=== PATIENT | female | born 1985 | race Caucasian/White ===

== ENCOUNTER 2018-02-02 13:58 | Outpatient (REF) | payer BC, SELFPAY ==
[2018-02-02 16:06] LABS: Iron 127 ug/dL (50-175); Total Iron Binding Capacity 329 ug/dL (250-450); Transferrin Sat 39 % (15-50)
[2018-02-02 16:19] LABS: Ferritin 52 ng/mL (8-388); TSH 0.51 uIU/mL (0.358-3.74)
== END 2018-02-02 14:18 ==
LOC: NCHCN 13:58
PROVIDERS: PCP Nurse Practitioner Family; Visit Provider Nurse Practitioner Family
DX: L65.9 Nonscarring hair loss, unspecified (principal)
CPT/HCPCS: 82728; 83540; 83550; 84443

== ENCOUNTER 2018-02-17 10:24 | Outpatient (REF) | payer BC, SELFPAY ==
--- NOTE | 2018-02-17 09:00 | PAPFT_PTH ---
PAT[facility]: [id number] AGE/SX: 32/F ROOM: RE02/17/[address]: Sergio Lopez : 1985 BED: DIS: 02/17/2018 SPEC #: [id number] RECD: 02/18/18 12:52 STATUS: RAQUEL REQ #: [id number] JULES: 02/17/18 09:[address]: Sergio Lopez DEPT: [facility] Cytology RECD BY: Ivelisse Vaca ENTERED: 02/18/18 12:52 SP TYPE: PAPFT OTHR DR: Faye Narayanan Tissues: 1 - CX/ENDOCX FOR PAP SMEARS Procedures: PAP THIN PREP/[facility] Screening HPV DNA PROBE Comments: [id number] (CHLAMYDIA/GC)
[2018-02-19 13:52] LABS: Chlamydia Result Negative; GC Result Negative; Specimen Description SEE COMMENTS
== END 2018-02-17 10:44 ==
LOC: NCHCN 10:24
PROVIDERS: PCP Nurse Practitioner Family; Visit Provider Family Medicine
DX: Z11.3 Encounter for screening for infections with a predominantly sexual mode of transmission (principal); Z12.4 Encounter for screening for malignant neoplasm of cervix; Z11.51 Encounter for screening for human papillomavirus (HPV); Z00.00 Encounter for general adult medical examination without abnormal findings
CPT/HCPCS: 87491; 87591; 88142; 87624

== ENCOUNTER 2019-02-07 11:39 | Outpatient (CLI) | payer OTHER, SELFPAY ==
--- NOTE | 2019-02-07 16:01 | DI.RAD_ITS ---
SYMPTOM/DIAGNOSIS: LEFT HAND PAIN M79.642 LEFT HAND: 02/07 Three views were obtained. No fracture is seen.
== END 2019-02-07 11:59 ==
PROVIDERS: PCP Family Medicine; Visit Provider Family Medicine
DX: M79.642 Pain in left hand (principal)
CPT/HCPCS: 73130

== ENCOUNTER 2019-09-13 23:18 | Outpatient (REF) | payer MEDICAID, SELFPAY ==
[2019-09-14 15:49] LABS: COVID-19 RT-PCR Result Negative (Negative)
== END 2019-09-13 23:38 ==
LOC: NCHCN 23:18
PROVIDERS: PCP Family Medicine; Visit Provider Physician Assistant
DX: J06.9 Acute upper respiratory infection, unspecified (principal)
CPT/HCPCS: U0003

== ENCOUNTER 2020-12-26 13:29 | Outpatient (REF) | payer MEDICAID, SELFPAY ==
[2020-12-26 14:59] LABS: Abs Immature Grans 0.02 10^3/uL (0.0-0.06); Absolute Basophil Count 0.06 10^3/uL (0.0-0.2); Absolute Eosinophil Count 0.25 10^3/uL (0.0-0.7); Absolute Lymphocyte Count 2.41 10^3/uL (1.2-3.4); Absolute Monocyte Count 0.61 10^3/uL (0.1-0.8); Absolute Neutrophil Count 5.99 10^3/uL (1.2-6.7); Basophils % 0.6; Eosinophils % 2.7; HCT 45.3 % (36.0-46.0); HGB 14.7 g/dL (11.2-15.7); Immature Grans % 0.2; Lymphocytes % 25.8; MCH 30.1 pg (27.0-33.0); MCHC 32.5 % (32.0-36.0); MCV 92.6 fL (80-95); MPV 10.9 fL (8.0-11.0); Monocytes % 6.5; Neutrophils % 64.2; Nucleated RBC 0 %; Platelet Count 320 10^3/uL (130-400); RBC 4.89 10^6/uL (3.93-5.22); RDW 12.3 % (11.7-14.6); RDW-SD 42.2 fL; WBC 9.34 10^3/uL (4.4-10.8)
[2020-12-26 15:43] LABS: Hemoglobin A1C 5.4 % (<5.7)
[2020-12-26 15:44] LABS: ALT 27 U/L (14-59); AST 15 U/L (15-37); Albumin 3.9 g/dL (3.4-5.0); Alkaline Phosphatase 65 U/L (46-116); Amylase 37 U/L (25-115); Anion Gap 7.3 mmol/L (3-11); BUN 13 mg/dL (7-18); Bilirubin, Total 0.3 mg/dL (0.2-1.0); CO2 28.7 mmol/L (21.0-32.0); CREATININE 0.9 mg/dL (0.55-1.02); Calcium 8.9 mg/dL (8.5-10.1); Chloride 104 mmol/L (98-107); Glucose 97 mg/dL (74-106); Lipase 89 U/L (73-393); Potassium 5.2 mmol/L (3.5-5.1); Sodium 140 mmol/L (136-145); TSH (W/Ref FT4) 0.71 uIU/mL (0.36-3.74); Total Protein 6.9 g/dL (6.4-8.2)
== END 2020-12-26 13:30 | disposition home or self-care (01) ==
LOC: LBN 13:29
PROVIDERS: PCP Family Medicine; Visit Provider Nurse Practitioner Family
DX: R10.11 Right upper quadrant pain (principal); R63.5 Abnormal weight gain; R35.8 Other polyuria
CPT/HCPCS: 80053; 83690; 82150; 83036; 84443; 85025; 87086

== ENCOUNTER 2021-01-23 15:12 | Outpatient (REF) | payer MEDICAID, SELFPAY ==
[2021-01-24 11:41] LABS: Campylobacter PCR Negative (Negative); Salmonella PCR Negative (Negative); Shiga Toxin PCR Negative (Negative); Shigella/Enteroinvasive Ecoli Negative (Negative)
== END 2021-01-23 15:13 | disposition home or self-care (01) ==
LOC: LBN 15:12
PROVIDERS: PCP Family Medicine; Visit Provider Family Medicine
DX: R19.7 Diarrhea, unspecified (principal)
CPT/HCPCS: 87329; 87493; 87505; 83630

== ENCOUNTER 2021-03-20 13:05 | Outpatient (REF) | payer MEDICAID, SELFPAY | END 2021-03-20 13:06 | disposition home or self-care (01) | LOC: NCHCN 13:05 | PROVIDERS: PCP Family Medicine; Visit Provider Family Medicine | DX: N89.8 Other specified noninflammatory disorders of vagina (principal) | CPT/HCPCS: 87480; 87510; 87660 ==

== ENCOUNTER 2022-07-16 10:44 | Outpatient (REF) | payer MEDICAID, SELFPAY ==
--- NOTE | 2022-07-16 10:15 | PAPFT_PTH ---
[facility]: [id number] AGE/SX: 36/F ROOM: RE07/16/[address]: Sergio Lopez : 1985 BED: DIS: 07/16/2022 SPEC #: [id number] RECD: 07/16/22 17:28 STATUS: RAQUEL REQ #: [id number] JULES: 07/16/22 10:[address]: Sergio Lopez DEPT: [facility] Cytology RECD BY: Ivelisse Vaca Tissues: 1 - CX/ENDOCX FOR PAP SMEARS Procedures: PAP THIN PREP/[facility] Screening HPV DNA PROBE Comments: [id number] (CHLAMYDIA/GC)
[2022-07-17 13:01] LABS: Chlamydia Result Negative (Negative); GC Result Negative (Negative)
== END 2022-07-16 10:45 | disposition home or self-care (01) ==
LOC: NCHCN 10:44
PROVIDERS: PCP Family Medicine; Visit Provider Family Medicine
DX: Z11.3 Encounter for screening for infections with a predominantly sexual mode of transmission (principal); Z12.4 Encounter for screening for malignant neoplasm of cervix; Z11.51 Encounter for screening for human papillomavirus (HPV)
CPT/HCPCS: 87491; 87591; 88142; 87624